=== PATIENT | female | born 1985 | race Caucasian/White ===

== ENCOUNTER 2025-06-01 11:19 | Emergency (ER) | payer OTHER, SELFPAY ==
[2025-06-01 11:26] VITALS: BP 138/90; PULSE 103; RESP 18; TEMP 36.2; O2SAT 98; BMI 37.1
--- NOTE | 2025-06-01 11:38 | ED.GENADULT ---
HPI - General Adult General Date Seen: 06/01/25 Chief complaint: Shortness of Breath/Dyspnea Stated complaint: Cough, SOB Time Seen by Provider: 06/01/25 11:35 History of Present Illness HPI narrative: 39-year-old female presenting to the ER today for evaluation of cough and shortness of breath. She has been sick for about 10 days or so with cold symptoms. Symptoms started with coughs, sore throat, body aches, stuffy nose, and cold symptoms. Her son had similar symptoms but improved within a couple of days. She thought she was getting better 4 days ago on Wednesday but then since Wednesday has been worse. She is now developing worsening cough with production of green sputum. For the past 2 days she has developed worsening cough, also pleuritic type cough related chest pain in the middle of her chest, as well as shivering chills. She has had a temperature up to 102 at home last night. She is also having body aches and headache. She has had some watery diarrhea for the past 4 days as well. No nausea. She has no history of asthma. No diabetes or immunosuppression. No other known sick contacts. Related Data Previous Rx's ?Medication ?Instructions ?Recorded benzonatate 100 mg capsule 100 mg PO TID PRN cough #14 caps 06/01/25 doxycycline monohydrate 100 mg 100 mg PO BID #14 caps 06/01/25 capsule Allergies Allergy/AdvReac Type Severity Reaction Status Date / Time No Known Drug Allergies Allergy Verified 06/01/25 11:24 PFSH PFSH Social History Smoking Status: Never smoker How often do you have a drink containing alcohol: monthly or less AUDIT-C Alcohol total score: 1 Non-prescribed substance use: denies use Exam Narrative: Exam Narrative: Constitutional: Appears well-developed and well-nourished. Alert. Conversant. Non toxic. Polite. Ambulatory. HENT: Head: Atraumatic. Nose: Nose normal. Mouth/Throat: Oral mucosa is clear and moist. no trismus. Pharynx normal. Tonsils symmetric. No tonsillar enlargement, erythema, or exudate. Eyes: Conjunctivae normal. EOM normal. Pupils equal, round, and reactive to light. No scleral icterus. Neck: Normal range of motion. Neck supple. No tracheal deviation present. No JVD Cardiovascular: Normal rate, regular rhythm. (was noted be tachycardic (103) at triage, but heart rate is in the 80s on my auscultation) No gallop. No friction rub. No murmur heard. Symmetric radial artery pulses Pulmonary/Chest: Effort normal. No stridor. No respiratory distress. No wheezes. Questionable subtle right upper and left basilar rales. No rhonchi . No tenderness. Abdominal: Soft. No distension. No mass. No tenderness. No rebound. No guarding. Musculoskeletal: RUE: Normal range of motion. No tenderness. No deformity LUE: Normal range of motion. No tenderness. No deformity RLE: Normal range of motion. No edema. No tenderness. No deformity LLE: Normal range of motion. No edema. No tenderness. No deformity Neurological: Alert and oriented to person, place, and time. Normal strength. CN II-VII intact. No sensory deficit. GCS eye subscore is 4. GCS verbal subscore is 5. GCS motor subscore is 6. Normal coordination Skin: Skin is warm and dry. No rash noted. No pallor. Normal capillary refill. Psychiatric: Normal mood. Normal affect. Const: Vital Signs, click to edit/add: Vital Signs - 24 hr 06/01/25 11:26 Temperature 97.2 F L Pulse Rate [Pulse Oximeter] 103 H Respiratory Rate 18 Blood Pressure [Ri t Upper Arm] 138/90 H Pulse Oximetry 98 Oxygen Delivery Me thod Room Air Course Vital Signs Vital signs: Initial Vital Signs Temperature 97.2 F L 06/01/25 11:26 Temperature Source Temporal Artery Scan 06/01/25 11:26 Pulse Rate 103 H 06/01/25 11:26 Pulse Rhythm Regular 06/01/25 11:26 Respiratory Rate 18 06/01/25 11:26 Blood Pressure 138/90 H 06/01/25 11:26 Blood Pressure Mean 106 H 06/01/25 11:26 Blood Pressure Position Sitting 06/01/25 11:26 Pulse Oximetry 98 06/01/25 11:26 Oxygen Delivery Method Room Air 06/01/25 11:26 Vital Signs Temperature 97.2 F L 06/01/25 11:26 Pulse Rate 103 H 06/01/25 11:26 Respiratory Rate 18 06/01/25 11:26 Blood Pressure 138/90 H 06/01/25 11:26 Pulse Oximetry 98 06/01/25 11:26 Oxygen Delivery Method Room Air 06/01/25 11:26 Temperature 97.2 F L 06/01/25 11:26 Pulse Rate 103 H 06/01/25 11:26 Respiratory Rate 18 06/01/25 11:26 Blood Pressure 138/90 H 06/01/25 11:26 Pulse Oximetry 98 06/01/25 11:26 Oxygen Delivery Method Room Air 06/01/25 11:26 Medications Administered Medications: Discontinued Medications Generic Name Dose Route Start Last Admin Trade Name Lisa PRN Reason Stop Dose Admin Benzonatate 100 mg 06/01/25 11:54 06/01/25 12:07 Benzonatate 100 Mg Capsule PO 06/01/25 11:55 100 mg ONCE ONE Administration Medical Decision Making [facility] Narrative Medical decision making narrative: This patient presents for evaluation of a 10 day to 14 day illness that started with cough, sore throat, stuffy nose. She has gotten worse over the past 2-4 days with development of fever, body aches chills, productive cough, as well as diarrhea.. This is consistent with an upper respiratory tract infection initially, but may be developing a superimposed pneumonia.. Viral testing is negative for coronavirus, influenza a/B, RSV.. There is no signs at this point of serious bacterial infection such as OM, RPA, epiglottitis, [employer], strep pharyngitis, sinusitis, meningitis, bacteremia, serious bacterial infection. Given lung sounds and chronicity of illness and deterioration after she had already been sick for 7-10 days, we did do a chest x-ray look for pneumonia. Radiology read of the x-ray is clear but I think there may be a subtle right upper lobe infiltrate. She did have some faint rales in that area (as well as the left base). I think it is reasonable to treat her with a course of doxycycline to cover for possible atypical pneumonia. She is feeling better in terms of her cough after Tessalon. She is not having any wheezing or bronchospasm to require albuterol or steroids. She has had some diarrhea but no vomiting. She is well hydrated and making urine here in the ER. At this point she and I agree that we can hold off on an IV for fluids. Likely no benefit for measurement of CBC her white count today so will hold off on labs. If she has worsening of her condition she is instructed to return to the ER and I would strongly consider IV, laboratory workup, and further evaluation. She is having little bit of chest pain but this clearly seems to be pleuritic and related to her cough. At this point I think she is low risk for acute coronary syndrome, pericarditis, PE, dissection, or other immediate life threat. Symptoms seem strongly correlated with her cough and respiratory illness. Close followup with primary care physician is indicated. Return to ED for fever > 103, protracted vomiting, confusion, or other worsening. Lab Data Labs: Lab Results 06/01/25 Range/Units 11:32 SARS-CoV-2 (PCR) Negative SARS-CoV-2 (Negative) Influenza Type A (PCR) Negative PCR FLU A (Negative) Influenza Type B (PCR) Negative PCR FLU B (Negative) RSV (PCR) Negative PCR RSV (Negative) Imaging Data Chest x-ray: Attestation: I have reviewed the pertinent imaging results. Radiologist's impression: FINDINGS: Cardiovascular and mediastinum: Heart size and vasculature are normal in caliber and appearance. Lungs and pleural spaces: Lungs are clear. No sign of infiltrate or mass. No sign of pleural effusion. No pneumothorax. Bones and soft tissues: No significant findings. IMPRESSION: No acute findings. Discharge Plan Discharge Clinical Impression: Atypical pneumonia Patient Disposition: Home, Self-Care Condition: Stable Instructions: Pneumonia (ED), Acute Cough (ED) Additional Instructions: As we discussed, your oxygen and other vital signs are good today. Your swab is negative for influenza or COVID. Her chest x-ray looks generally clear but I think there is a faint smudge in your right upper lobe that indicates a condition called ?atypical pneumonia. ? Please start on the antibiotics today and take them twice daily for 7 days. You should start to feel better within about 48 hours after starting on the antibiotics. If you are not better within 48-72 hours, please follow-up with your doctor or come back to the ER for recheck. If you get worse (for instance worsening cough, trouble breathing, worsening chest pain, high fever, worsening weakness) please return to the ER immediately to be rechecked. You can use the cough medication (Tessalon) if needed help your cough. Be sure to drink plenty of fluids and stay hydrated. Rest. Stay home from work until you are feeling better and you have been afebrile for more than 24 hours. You can use Tylenol or ibuprofen, as you have been doing, to help keep her fever under control. Prescriptions: New doxycycline monohydrate 100 mg capsule 100 mg PO BID Qty: 14 0RF benzonatate 100 mg capsule 100 mg PO TID PRN (Reason: cough) Qty: 14 0RF Follow Up/Referrals: Provider,Not a Local [Primary Care Provider, Family Practice] Stand Alone Forms: Work/School [facility], [facility] Info Instructions
--- NOTE | 2025-06-01 11:54 | CRLHL7_ITS ---
For Patients: As a result of the Cures Act, medical imaging exams and procedure reports are released immediately into your electronic medical record. You may view this report before your referring provider. If you have questions, please contact your health care provider. INDICATION: COUGH, FEVER TECHNIQUE: Chest 2 views COMPARISON: None FINDINGS: Cardiovascular and mediastinum: Heart size and vasculature are normal in caliber and appearance. Lungs and pleural spaces: Lungs are clear. No sign of infiltrate or mass. No sign of pleural effusion. No pneumothorax. Bones and soft tissues: No significant findings. IMPRESSION: No acute findings. Dictated by Zafar Fernando MD @ 06/01/2025 12:16:19 PM (Electronically Signed)
[2025-06-01] MEDS: BENZONATATE 100 MG CAPSULE PO (12:07)
[2025-06-01 12:16] LABS: PCR FLU A Negative PCR FLU A (Negative); PCR FLU B Negative PCR FLU B (Negative); PCR RSV Negative PCR RSV (Negative); SARS PCR* Negative SARS-CoV-2 (Negative)
== END 2025-06-01 13:15 | disposition home or self-care (01) ==
PROVIDERS: Emergency Provider Emergency Medicine
DX: J18.9 Pneumonia, unspecified organism (principal); R05.1 Acute cough
CPT/HCPCS: 71046; 87631; 99283; 99284; A9270